=== PATIENT | female | born 1995 | race Caucasian/White ===

== ENCOUNTER 2019-12-14 08:52 | Emergency (ER) | payer MEDICAID ==
--- NOTE | 2019-12-14 09:22 | ERPHSYRPT ---
- History of Present Illness Time Seen by Provider: 12/14/19 09:07 Source: patient Exam Limitations: no limitations Patient Subjective Stated Complaint: Pt states "It all started on the November. I feel like I have allot of stuff in my ears, like they are clogged." Triage Nursing Assessment: Pt presented alert and oriented X 3, skin pwd Pt ambulates with an upright steady gait, able to speak in clear full sentences pt in no apparent respiratory distress. pt has quite a bit of cerumen in ears bilat. Physician History: 34 years old female presented in the ER with chief complaint of bilateral ear pressure and decreased hearing with feeling as if she has a lot of wax clogged up. Patient reported started after 23 November swimming. Gradually worsening. She has used [id number] meds to remove wax but did not see much improvement. Denies any earache otherwise. No URI symptoms. No fever or chills. Timing/Duration: abrupt onset, weeks (3) Severity: moderate ENT Location: ear (R), ear (L) Prearrival Treatment: over the counter meds Associated Symptoms: change in hearing Allergies/Adverse Reactions: Penicillins Allergy (Severe, Verified 12/14/19 09:02) Swelling Hx Tetanus, Diphtheria Vaccination/Date Given: No Hx Influenza Vaccination/Date Given: No Hx Pneumococcal Vaccination/Date Given: No Immunizations Up to Date: Yes Travel Risk - International Travel Have you traveled outside of the country in past 3 weeks: No - Coronavirus Screening Are you exhibiting any of the following symptoms?: No Close contact with a COVID-19 positive Pt in past 14-21 Days: No - Review of Systems Constitutional: No Symptoms Eyes: No Symptoms Ears, Nose, & Throat: Hearing Changes Respiratory: No Symptoms Cardiac: No Symptoms, Orthopnea Genitourinary Symptoms: No Symptoms Musculoskeletal: No Symptoms Psychological: No Symptoms Endocrine: No Symptoms Immunological/Allergic: No Symptoms - Past Medical History Pertinent Past Medical History: No - Past Surgical History Past Surgical History: Yes Other Surgical History: c section - Social History Smoking Status: Never smoker Exposure to second hand smoke: No Drug Use: none Patient Lives Alone: No - Female History Hx Last Menstrual Period: 11/10/2019 Hx Now: No - Nursing Vital Signs Nursing Vital Signs: Initial Vital Signs Temperature 98.5 F 12/14/19 08:57 Pulse Rate 117 H 12/14/19 08:57 Respiratory Rate 20 12/14/19 08:57 Blood Pressure 157/91 12/14/19 08:57 O2 Sat by Pulse Oximetry 98 12/14/19 08:57 Pain Scale Pain Intensity 0 - Physical Exam General Appearance: no apparent distress, alert Eye Exam: bilateral eye: normal inspection, PERRL, EOMI Ear Exam: bilateral ear: auricle normal, other (Bilateral canals full of wax. 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 Partially visible TMs bilaterally. Will start on Debrox and outpatient ENT/primary care follow-up. Counseled pt/family regarding: diagnosis, need for follow-up - Departure Departure Disposition: Home Clinical Impression: Impacted cerumen of both ears Condition: Stable Critical Care Time: No Referrals: CAROL ANN ELI [ACTIVE STAFF] - Follow Up with PCP/3 days VERONICA BURTON [NON-STAFF PHY W/O PRIVILEGES] - Follow Up with PCP/3 days Instructions: Ear Wax Impaction (DC) Additional Instructions: Do not use Q-tips or any other instruments to remove wax. Use Debrox. Follow- up with primary care and ENT for reevaluation. Return to ER for any worsening. Prescriptions: Carbamide Peroxide [Debrox] 15 ml OT BID 4 Days #10 drops
[2019-12-14 10:28] VITALS: BP 118/69; PULSE 69
[2019-12-14 11:07] VITALS: O2SAT 98
== END 2019-12-14 11:27 | disposition home or self-care (01) ==
LOC: ED 08:52
DX: H61.23 Impacted cerumen, bilateral (principal)
CPT/HCPCS: 99283